=== PATIENT | male | born 1960 | race Caucasian/White ===

== ENCOUNTER 2023-02-16 07:32 | Emergency (ER) | payer OTHER ==
[~2023-02-16] VITALS: Ht 182.9 cm; Wt 131.0 kg
[2023-02-16 07:55] LABS: BASOPHILS 1.1 % (0-2); EOSINOPHILS 2.3 % (0-6); HEMATOCRIT 43.3 % (35.0-50.0); HEMOGLOBIN 14.1 g/dL (12.0-18.0); LYMPHOCYTES 31.4 % (24-44); MCH 26.1 (27-36); MCHC 32.6 g/dl (30-36); MCV 79.8 fl (81-99); MONOCYTES 8.6 % (0-12); NEUTROPHILS 56.6 % (39-80); PLATELET COUNT 260 K/uL (140-440); RBC 5.43 M/ul (4.3-5.7); RDW 14.5 (10.5-15.0)
[2023-02-16 08:08] LABS: ALBUMIN 3.7 g/dL (3.4-5.0); ANION GAP 17.8 (7-21); BILIRUBIN, TOTAL 0.4 ng/dL (0.2-1.0); BUN/CREATININE RATIO 17.17 (6.0-28.6); CALCIUM 8.6 mg/dL (8.5-10.1); CREATININE, SERUM 0.99 mg/dL (0.70-1.30); POTASSIUM 3.8 mmol/L (3.5-5.1); PROTEIN, TOTAL 7.4 g/dL (6.4-8.2)
[2023-02-16] MEDS ORDERED: FLOMAX0.4 MG PO (08:46)
[2023-02-16] MEDS ORDERED: HYDROCODON-ACE1 EA11 PO (08:46)
[2023-02-16] MEDS ORDERED: ONDANSETRON ODT8 MG PO (08:46)
[2023-02-16 09:02] LABS: BILIRUBIN, URINE NEGATIVE (negative); BLOOD/HGB, URINE LARGE (Negative); KETONE, URINE NEGATIVE (Negative); LEUK ESTERASE, URINE NEGATIVE (negative); NITRITE, URINE NEGATIVE (negative); PH, URINE 5.5 (5-7)
[2023-02-16 09:08] LABS: RED BLOOD CELLS, URINE >50 /hpf (0-5)
[2023-02-16 09:11] LABS: BACTERIA, URINE NONE SEEN /hpf (negative); CASTS, URINE NONE SEEN \\lpf; CRYSTALS, URINE NONE SEEN (0-1+); EPITHELIAL CELLS, URINE SQUAMOUS 1+ /lpf (0-1+); WHITE BLOOD CELLS, URINE 0-1 /HPF (0-5)
[2023-02-16 09:12] LABS: COLLECTION TYPE, URINE CLEAN CATCH; REFLEX CULTURE, URINE No (No)
[2023-02-16 09:26] VITALS: BP 129/87
== END 2023-02-16 09:30 | disposition home or self-care (01) ==
LOC: ED 07:32
PROVIDERS: Emergency Medicine
DX: N20.2 Calculus of kidney with calculus of ureter (principal)
CPT/HCPCS: 36415; 74176; 80053; 81001; 85025; A9270; J1885; J2405; J7030

== ENCOUNTER 2024-11-17 06:20 | Day surgery (SDC) | payer OTHER ==
[~2024-11-17] VITALS: Ht 182.9 cm; Wt 114.5 kg
[~2024-11-17 06:20] MED LIST: FLOMAX0.4 MG PO; HYDROCODON-ACE1 EA11 PO; MIDAZOLAM HCL 5 MG/5 ML VIAL IV PRN; ONDANSETRON ODT8 MG PO; fentaNYL citrate 100 MCG/2 ML VIAL IV PRN
[2024-11-17 06:35] VITALS: BP 130/83
[2024-11-17] MEDS ORDERED: ADVIL200 M1 PO (06:39)
[2024-11-17] MEDS ORDERED: TYLENOL EXTRA500 MG PO (06:40)
[2024-11-17] MEDS ORDERED: fentaNYL citrate 100 MCG/2 ML VIAL ONE ×2 (06:41→07:49)
[2024-11-17] MEDS ORDERED: MIDAZOLAM HCL 5 MG/5 ML VIAL ONE (06:41)
[2024-11-17] MEDS ORDERED: LIDOCAINE HCL 1% 5 ML SDV INJ ONE (07:00)
[2024-11-17] MEDS ORDERED: LACTATED RINGER'S 1,000 ML IV SCH (07:00)
[2024-11-17] MEDS ORDERED: IBLOOD GLUCOSE TEST STRIP 1 EA TEST VI PRN (07:00)
--- NOTE | 2024-11-17 07:51 | NUR ---
PT NOT AVAILABLE FOR VISIT. PROVIDED PRAYER.
--- NOTE | 2024-11-17 08:34 | NUR ---
11/17/24 0834 Kaykay Porter DISCUSSION ABOUT POSSIBLE SLEEP APNEA HAD WITH PATIENT. HE VERBALIZES UNDERSTANDING. OXYGEN SATURATION IS 95% ON 2L VIA NC. OXYGEN IS DISCONTINUED AT THIS TIME. DR AVELAR PRESENTS TO THE BEDSIDE AND IS SPEAKING WITH PATIENT. HIS QUESTIONS ARE ANSWERED.
[2024-11-17] MEDS ORDERED: PANTOPRAZOLE SODIUM 40 MG TABEC PO SCH (09:00)
[2024-11-17 09:17] VITALS: BP 117/75
--- NOTE | 2024-11-17 13:55 | OR ---
[facility] [address], [place] [address] Signed DATE OF OPERATION: 11/17/2024 SURGEON: Neelima Avelar MD PREOPERATIVE DIAGNOSIS: Tubular adenomas x3 in 2023. POSTOPERATIVE DIAGNOSES: 1. Sigmoid diverticulosis. 2. Two small polyps, left colon and possible polyp of rectum. PROCEDURES: Total colonoscopy to cecum with cold morcellation polypectomy x3. ANESTHESIA: Intravenous sedation, fentanyl 150 mcg, and Versed 7 mg. INDICATION: This 64-year-old white man is a patient Dr. Amalia Bautista and underwent colonoscopy in February of 2023 where he was found to have three tubular adenomas. I had recommended short-term followup colonoscopy. He has no current symptoms of bleeding, diarrhea, or constipation and has no family history of colon cancer. He understands the risk of surveillance colonoscopy including, but not limited to bleeding, infection, and perforation and wished to proceed. FINDINGS: The prep was good. Complete colonoscopy was undertaken of the cecum. He had numerous diverticula of the sigmoid colon. There were two small polyps, one of the left, the other of the rectosigmoid, which were excised and another lesion on retroflexed view in the rectum that may have been a hyperplastic polyp, which was excised as well. Internal hemorrhoids were noted as well. He had no other findings of concern. DESCRIPTION OF PROCEDURE: The patient was brought to the endoscopy suite and placed in lateral decubitus position, given intravenous sedation to the point of slurred speech and nystagmus. Digital rectal examination was normal. An Olympus video colonoscope was passed in the rectum and manipulated throughout the colon noting numerous diverticula of the sigmoid colon. Once the cecum was obtained, careful inspection undertaken showed no sign of abnormality. The scope was then Electronically Signed By: NEELIMA AVELAR MD 11/17/24 1355 PATIENT NAME: SHERRIE BOONE JR OPERATIVE REPORT DATE OF : 64 REPORT #: [id number] PHYSICIAN: NEELIMA AVELAR MD PCP: AMALIA BAUTISTA MD REPORT IS CONFIDENTIAL AND NOT TO BE RELEASED WITHOUT AUTHORIZATION [facility] [address], [place] [address] Signed withdrawn. Examination throughout showed no sign of abnormality into the proximal descending colon where a small adenomatous appearing polyp was noted. This was excised with cold morcellation technique and measured less than 3 mm. Further withdrawal showed the diverticula of the sigmoid and left colon. Once again, at the rectosigmoid was a small polyp, possibly hyperplastic. This was excised with cold morcellation technique. Further withdrawal and retroflexed view showed the possibility of a polyp of the rectum, though not obvious and certainly not large. It was excised as well. The scope was straightened and withdrawn noting also internal hemorrhoids. The patient was taken to recovery room in good condition. CONCLUDING DIAGNOSES: 1. Polyps x2, possibly three. 2. Diverticulosis. PLAN: Recommend repeat colonoscopy in 5-7 years, sooner if symptoms should develop. Recommend high-fiber diet as well. He will return to the ongoing care of Dr. Amalia Bautista. MD JHONNY Mitchell/WILLIAML /[id number] cc: Amalia Bautista MD Copies: AMALIA BAUTISTA MD ~ Electronically Signed By: NEELIMA AVELAR MD 11/17/24 1355 PATIENT NAME: HELENE BOONEKARIN Hernandez OPERATIVE REPORT DATE OF : 64 REPORT #: [id number] PHYSICIAN: NEELIMA AVELAR MD PCP: AMALIA BAUTISTA MD REPORT IS CONFIDENTIAL AND NOT TO BE RELEASED WITHOUT AUTHORIZATION
--- NOTE | 2024-11-21 11:06 | PATH ---
[facility] [address], [place] [address] Signed SPECIMEN(S): A DESCENDING COLON POLYP SPECIMEN(S): B SIGMOID POLYP SPECIMEN(S): C RECTAL POLYP SPECIMEN SOURCE: A. DESCENDING COLON POLYP B. SIGMOID POLYP C. RECTAL POLYP CLINICAL HISTORY: 03/10 history three tubular adenomas, diverticulosis, polyps X2, possible polyp X1 FINAL PATHOLOGIC DIAGNOSIS: A. Descending colon polyp: - Tubular adenoma (one fragment). B. Sigmoid polyp: - Hyperplastic polyp (two fragments). C. Rectal polyp: - Hyperplastic polyp (three fragments). JVR:smn MICROSCOPIC EXAMINATION: Histologic sections of all submitted blocks are examined by light microscopy. These findings, together with the gross examination, support the pathologic diagnosis. GROSS DESCRIPTION: A. The specimen, labeled and designated "Maged, descending colon polyp," is received in formalin and consists of two jack soft tissue fragments, ranging from 0.2-0.3 cm. Entirely submitted in (A1). B. The specimen, labeled and designated "Lynne, rectosigmoid polyp," is received in formalin and consists of one jack soft tissue fragment, 0.5 cm. Entirely submitted in (B1). C. The specimen, labeled and designated "Lynne, rectal polyp, possible," is received in formalin and consists of three jack soft tissue fragments, ranging from 0.2-0.7 cm. Entirely submitted in (C1). VB (under the direct supervision of a pathologist) The Gross Description was prepared using a voice recognition system. The report was reviewed for accuracy; however, sound-alike word errors, addition and/or deletions may occur. If there is any PATIENT NAME: SHERRIE LYNNE JR PATHOLOGY DATE OF : 64 REPORT #: [id number] PHYSICIAN: KIRILL KRUEGER PCP: AMALIA CLEMENT MD REPORT IS CONFIDENTIAL AND NOT TO BE RELEASED WITHOUT AUTHORIZATION [facility] [address] [facility] [place] [place] [address] Signed question about this report, please contact Client Services. PERFORMING LABORATORY: Technical component was performed by [facility], [address] [place] [address] (CLIA# [id number]). Professional interpretation was performed by [facility] - [facility], [address] [place] [id number] (CLIA#: [id number]). Diagnostician: Abhijit Bowling MD Pathologist Electronically Signed 11/21/2024 Copies: ~ PATIENT NAME: SHERRIE LYNNE JR PATHOLOGY DATE OF : 64 REPORT #: [id number] PHYSICIAN: KIRILL KRUEGER PCP: AMALIA CLEMENT MD REPORT IS CONFIDENTIAL AND NOT TO BE RELEASED WITHOUT AUTHORIZATION
== END 2024-11-17 09:17 | disposition home or self-care (01) ==
LOC: DS 06:20
PROVIDERS: ATTEND Surgery
PROC: 0DBN8ZX Excision of Sigmoid Colon, Via Natural or Artificial Opening Endoscopic, Diagnostic (ICD-10-PCS; 2024-11-17)
PROC: 0DBP8ZX Excision of Rectum, Via Natural or Artificial Opening Endoscopic, Diagnostic (ICD-10-PCS; 2024-11-17)
PROC: 0DBM8ZX Excision of Descending Colon, Via Natural or Artificial Opening Endoscopic, Diagnostic (ICD-10-PCS; principal; 2024-11-17 07:30)
DX: D12.4 Benign neoplasm of descending colon (principal); K63.5 Polyp of colon; K62.1 Rectal polyp; K57.30 Diverticulosis of large intestine without perforation or abscess without bleeding; K64.8 Other hemorrhoids
CPT/HCPCS: 85025; 99153; G0500; J2250; J3010